=== PATIENT | male | born 1995 | race Caucasian/White ===

== ENCOUNTER 2024-02-27 08:39 | Emergency (ER) | payer BC, SELFPAY ==
[2024-02-27 08:50] VITALS: BP 172/101; PULSE 111; RESP 24; TEMP 36.8; O2SAT 97
--- NOTE | 2024-02-27 08:52 | EKG_ITS ---
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
--- NOTE | 2024-02-27 08:55 | XR_ITS ---
Examination: CT abdomen and pelvis without contrast. Coronal 3-D reconstructions. Sagittal 2-D reconstructions. Date and time of exam:February 27, 2024 0930 hours INDICATIONS: Onset right lower abdominal pain today CTDI: vol (mGy): 9.46 DLP: (mGycm): 621 Technique: Axial images of the abdomen have been obtained, 3 mm slice thickness Intravenous contrast material has not been administered. Low dose protocols were performed. One or more of the following dose reduction techniques were used; automated exposure control, adjustment of the mA and/or KV according to patient size, use of iterative reconstruction technique. Findings: No focal liver or splenic lesions No gallstones No pancreatic or adrenal mass 2 mm lower pole right renal calculus 2 mm lower pole left renal calculus Minimal right hydronephrosis secondary to 2 mm distal right ureterovesical junction calculus Aorta normal size No bowel obstruction No pericecal inflammatory change, normal appendix No diverticulitis Contracted urinary bladder IMPRESSION: Minimal right hydronephrosis secondary to 2 mm distal right ureterovesical junction calculus
[2024-02-27] MEDS: KETOROLAC INJ 30 MG/ML VIAL 15 MG IVP (09:15)
[2024-02-27] MEDS: SODIUM CHLORIDE 0.9% 1000 ML 1,000 ML 999 ML IV (09:17)
--- NOTE | 2024-02-27 09:18 | EDNOTE_ITS ---
ED Abdominal Pain RME/HPI General Chief Complaint: Abdominal Pain Stated complaint: ABD PAIN TODAY Time seen by provider: 02/27/24 08:49 Arrival date/time: 02/27/24 08:39 RME / HPI RME / HPI narrative: 28 year old male with no stated medical history presents to the ED for evaluation of abdominal pain today. States pain is located most to the right flank that radiates around to his right lower quadrant, describes a colicky in sensation, rating as severe. Accompanied by nausea. Denies any history of similar pain. Denies fever, chills, sweating. Denies chest pain, cough, shortness of breath. Denies vomiting, diarrhea, constipation. Denies dysuria, urinary frequency and urgency. Related Data Previous Rx's ?Medication ?Instructions ?Recorded ibuprofen 600 mg tablet 600 mg PO Q6H PRN pain #30 tabs 02/27/24 tamsulosin 0.4 mg capsule 0.4 mg PO QDAY #14 caps 02/27/24 Allergies Allergy/AdvReac Type Severity Reaction Status Date / Time No Known Allergies Allergy Verified 02/27/24 08:41 Review of Systems Review of Systems Narrative Review of Systems: GEN: No fever, no chills, no weight loss EYES: No discharge, no visual changes, no pain HEENT: No ear pain, no congestion, no sore throat PULM: No shortness of breath, no cough, no congestion CV: No chest pain, no dyspnea on exertion, no palpitations GI: +nausea, no vomiting, no diarrhea, + pain, no constipation : No frequency, no urgency, no dysuria MUSC/SKEL: No joint pain, + back pain SKIN: No rash PSYCH: No hallucinations, no depression HEME/LYMPH: No easy bleeding or bruising tendencies NEURO: No weakness, no headache Past Medical History Past Medical History CARDIAC: Negative Congestive Heart Failure RESPIRATORY: Negative Chronic Obstructive Pulmonary Disease (COPD) GENITOURINARY: Negative Renal Disease ENDOCRINE: Negative Diabetes Mellitus Type 1 or Diabetes Mellitus Type 2 Social History SMOKING STATUS: Never smoker ED Exam Narrative Physical exam: GENERAL APPEARANCE: alert and oriented x 4, well-developed, well-nourished, diaphoretic, appears to in pain HEENT: Normocephalic, atraumatic; pupils equal, round, reactive to light; EOMI; mucous membranes pink, moist; oropharynx clear NECK: Supple LUNGS: CTABL; no wheezes, no rales, no rhonchi HEART: Regular rate, regular rhythm; normal S1, S2; no murmurs ABDOMEN: non distended; normal BS; soft, mild right sided tenderness, no guarding, no rebound; no masses, no organomegaly, no hernia BACK: no CVA tenderness EXTREMITIES: atraumatic; no edema NEUROLOGIC: awake; alert and oriented x4; cranial nerves II-XII grossly intact; no focal sensory or motor deficits PSYCHIATRIC: appropriate mood and affect SKIN: warm, dry, normal color; no rashes Course Quality Measures none Orders Category Date Time Status EKG (ED ONLY) *Do not use* NOW Care 02/27/24 08:[address] abdomen pelvis wo con Stat Exams 02/27/24 08:55 Completed EKG (ED Only) Stat Exams 02/27/24 08:52 Draft Alcohol, Blood Medical Stat Lab 02/27/24 09:15 Completed CBC Stat Lab 02/27/24 09:15 Completed Comprehensive Metabolic Panel Stat Lab 02/27/24 09:15 Completed Drug Screen,Urine Stat Lab 02/27/24 09:50 Completed Lipase Stat Lab 02/27/24 09:15 Completed Magnesium Stat Lab 02/27/24 09:15 Completed Troponin I Stat Lab 02/27/24 09:15 Completed UA, C/S IF [Urinalysis, C/S if Indicated] Stat Lab 02/27/24 09:50 Completed HYDROcodone*/APAP 5/325 [[place] [employer] 5/325] Med 02/27/24 12:11 Discontinued 1 tab PO X1 ONE HYDROmorphone INJ [Dilaudid Inj] Med 02/27/24 11:34 Discontinued 1 mg IVP X1 ONE Ketorolac Inj [Toradol Inj] Med 02/27/24 08:51 Discontinued 15 mg IVP X1 ONE Morphine Inj Med 02/27/24 10:25 Discontinued 4 mg IVP X1 ONE Morphine Inj Med 02/27/24 08:51 Discontinued 5 mg IVP X1 ONE Ondansetron Inj [Zofran Inj] Med 02/27/24 08:51 Discontinued 4 mg IV X1 ONE Sodium Chloride 0.9% 1000 ml [Ns] 1,000 ml Med 02/27/24 08:51 Discontinued IV 999 mls/hr Sodium Chloride 0.9% 1000 ml [Ns] 1,000 ml Med 02/27/24 11:47 Discontinued IV 999 mls/hr Tamsulosin HCl [Flomax] Med 02/27/24 10:28 Discontinued 0.4 mg PO X1 ONE Reevaluation(s) Reevaluation #1: still complains of pain after Toradol. Will order Dilaudid. Time: 11:25 Reevaluation #2: Patient reported improvement. We reviewed all the results, analysis, and treatment plans. Patient is amenable to discharge. Strict return precautions were outlined. Patient was discharged in stable condition. Time: 12:25 Vital Signs Vital signs: Vital Signs Temperature 98.3 F 02/27/24 08:50 Pulse Rate 111 H 02/27/24 08:50 Respiratory Rate 24 H 02/27/24 08:50 Blood Pressure 172/101 H 02/27/24 08:50 Pulse Oximetry (%) 97 02/27/24 08:50 Oxygen Delivery Method Room Air 02/27/24 08:50 Pulse ox is 97% on room air which is adequate. Abdominal Pain MDM Patient data External records reviewed:: None Clinical information provided by:: patient Social determinants that could affect healthcare access:: none Patient has the following chronic illnesses:: None How is presenting disease/condition affected by chronic disease/condition?: no chronic disease Evaluation data The following diagnostics were reviewed and interpreted by me:: lab results, radiology exam(s) and EKG tracing(s) (NSR, rate 75, no acute ischemic changes) Lab and/or radiology exams considered but not ordered:: none Interpretation Summary: Abnpelvis CT shows: Minimal right hydronephrosis secondary to 2 mm distal right ureterovesical junction calculus Medications / Prescriptions Medications or Prescriptions considered but not ordered:: none Medication administrations:: Medication Administration History Discontinued Medications Hydrocodone Bitart/Acetaminophen (Hydrocodone/Apap 5/325 Tablet) 1 tab PO X1 ONE Stop: 02/27/24 12:12 Last Admin: 02/27/24 12:42 Dose: 1 tab Documented By: GM Hydromorphone HCl (Hydromorphone Inj 2 Mg/Ml Vial) 1 mg IVP X1 ONE Stop: 02/27/24 11:35 Last Admin: 02/27/24 11:39 Dose: 1 mg Documented By: KM Sodium Chloride (Ns) 1,000 mls @ 999 mls/hr IV .Q1H1M ONE Stop: 02/27/24 09:51 Last Infusion: 02/27/24 12:53 Dose: Infused Documented By: Admin: 02/27/24 09:17 Dose: 999 mls/hr Documented By: CUBA Comments: SCANNER NOT WORKING ON X 2 COMPUTERS CALLED IT Sodium Chloride (Ns) 1,000 mls @ 999 mls/hr IV .Q1H1M ONE Stop: 02/27/24 12:47 Last Admin: 02/27/24 12:41 Dose: Not Given Documented By: DEMARCO Non-Admin Reason: Cancelled by Provider Ketorolac Tromethamine (Ketorolac Inj 30 Mg/Ml Vial) 15 mg IVP X1 ONE Stop: 02/27/24 08:52 Last Admin: 02/27/24 09:15 Dose: 15 mg Documented By: CUBA Comments: SCANNER NOT WORKING ON X 2 COMPUTERS CALLED IT Morphine Sulfate (Morphine Sulf Inj 10 Mg/Ml Vial) 5 mg IVP X1 ONE Stop: 02/27/24 08:52 Last Admin: 02/27/24 09:25 Dose: 5 mg Documented By: CUBA Comments: SCANNER NOT WORKING ON X 2 COMPUTERS CALLED IT Morphine Sulfate (Morphine Sulf Inj 10 Mg/Ml Vial) 4 mg IVP X1 ONE Stop: 02/27/24 10:26 Last Admin: 02/27/24 10:50 Dose: 4 mg Documented By: CUBA Ondansetron HCl (Ondansetron Inj 2 Mg/Ml Inj 2 Ml) 4 mg IV X1 ONE Stop: 02/27/24 08:52 Last Admin: 02/27/24 09:25 Dose: 4 mg Documented By: CUBA Comments: SCANNER NOT WORKING ON X 2 COMPUTERS CALLED IT Tamsulosin HCl (Tamsulosin Hcl 0.4 Mg Capsule) 0.4 mg PO X1 ONE Stop: 02/27/24 10:29 Last Admin: 02/27/24 10:50 Dose: 0.4 mg Documented By: CUBA see above Consultations Consultation(s) initiated? (list below): No Diagnosis Differential diagnosis abdominal pain: abdominal pain, acute appendicitis and calculus of kidney Most likely diagnosis given after review of the tests above:: Kidney stone Admission Indicated Admission indicated?: not indicated Admission Request Was there a request for admission?: No Disposition Plan Disposition Plan: Discharge Discharge Attestation Discharge Attestation: The patient and all family members were given an opportunity to ask questions and understood the discharge instructions. Discharge instructions specifically effects, indications for sooner follow up or return to the emergency department, and the expected course of current diagnosis. Patient condition: Stable Discharge Plan Plan Patient Disposition: HOME (Self Care) Prescriptions/Referrals Prescriptions/Med Rec: New tamsulosin 0.4 mg capsule 0.4 mg PO QDAY Qty: 14 0RF ibuprofen 600 mg tablet 600 mg PO Q6H PRN (Reason: pain) Qty: 30 0RF Referrals: Stas Camarena MD [Primary Care Provider] - In 1 week Problem List Clinical Impression: Right ureteral stone Patient/Caregiver Discharge Instructions Education Materials: ED Kidney Stone w/ Colic Print Language: Romanian Stand Alone Forms: Olinda Award Info., Patient Portal Info Letter
[2024-02-27] MEDS: ONDANSETRON INJ 2 MG/ML INJ 2 ML 4 MG IV (09:25)
[2024-02-27] MEDS: MORPHINE SULF INJ 10 MG/ML VIAL 5 MG IVP (09:25)
--- NOTE | 2024-02-27 09:25 | PC.NURSE ---
patient gone to ct.
[2024-02-27 09:26] VITALS: BMI 26.5
[2024-02-27 09:54] LABS: Basophils % (Auto) 0 % (0-2.5); Eosinophils % (Auto) 0 % (0-10); Hematocrit 45.8 % (41.0-53.0); Immature Granulocytes % (Auto) 0 % (0-0); Immature Granulocytes Auto 0.03 Thou/mm3 (0.00-0.00); Lymphocytes # (Auto) 2.7 Thou/mm3 (1.0-4.8); Lymphocytes % (Auto) 23 % (10-50); Mean Corpuscular HGB Conc 34.9 g/dl (31.0-37.0); Mean Corpuscular Hemoglobin 30.7 pg (25.0-35.0); Mean Corpuscular Volume 88 fL (80-100); Monocytes # (Auto) 0.6 Thou/mm3 (0.0-0.8); Monocytes % (Auto) 5 % (0-12); Neutrophils # (Auto) 8.6 Thou/mm3 (1.8-7.7); Neutrophils % (Auto) 72 % (37-80); Nucleated Red Blood Cell % 0 /100 WBC (0); Platelet Count 334 Thou/mm3 (140-440); RDW Standard Deviation 38.7 fL (35.1-43.9); Red Blood Count 5.21 Miln/mm3 (4.50-5.90)
[2024-02-27 10:07] LABS: Alanine Aminotransferase 46 U/L (10-49); Albumin/Globulin Ratio 1.6 (1.2-2.2); Alcohol, Blood Medical < 10.0 mg/dL (0-10.0); Alkaline Phosphatase 89 U/L (46-116); Anion Gap 13 (7-16); Aspartate Amino Transferase 23 U/L (0-34); BUN/Creatinine Ratio 10 Ratio (12-20); Bilirubin,Total 0.8 mg/dL (0.3-1.2); Blood Urea Nitrogen 13 mg/dL (9-23); Calcium 9.7 mg/dL (8.3-10.6); Calcium (Corrected) 9.7 mg/dL (8.5-10.1); Carbon Dioxide 19.9 mMol/L (20.0-31.0); Chloride 106 mMol/L (98-107); Creatinine (Component) 1.3 mg/dL (0.6-1.3); Estimated Creatinine Clearance 88.1 mL/min (>60); Globulin 3.1 gm/dL (2.3-3.5); Glucose 130 mg/dL (74-106); Lipase 36 U/L (12-53); Magnesium 2.1 mg/dL (1.6-2.6); Osmolality,Calculated 279 (275-295); Potassium 3.5 mMol/L (3.4-5.1); Sodium 139 mMol/L (136-145); Total Protein 8.1 gm/dL (5.7-8.2); Troponin I < 0.002 ng/mL (0.0-0.045); eGFR > 60 See Note
[2024-02-27 10:11] LABS: Collection Type, Urine Clean Catch
[2024-02-27 10:42] LABS: Amphetamine/Methamp Scrn,U Negative (Negative); Barbiturate Screen,Urine Negative (Negative); Benzodiazepines Screen,Urine Negative (Negative); Benzoylecgonine Screen, Ur Negative (Negative); Fentanyl Screen,Urine Negative (Negative); Opiate Screen,Urine Positive (Negative); THC Screen,Urine Negative (Negative)
[2024-02-27 10:49] VITALS: BP 152/88; PULSE 94; RESP 16; O2SAT 95
[2024-02-27] MEDS: TAMSULOSIN HCL 0.4 MG CAPSULE PO (10:50)
[2024-02-27] MEDS: MORPHINE SULF INJ 10 MG/ML VIAL 4 MG IVP (10:50)
[2024-02-27 11:16] LABS: Bacteria,Urine Rare; Bilirubin,Urine Negative (Negative); Blood,Urine 3+ (Negative); Color,Urine Yellow (Lt Yel-Yel); Culture Indicated,Urine Not Indicated; Glucose, Urine Negative (Negative); Ketones,Urine Negative (Negative); Leukocyte Esterase,Urine Negative (Negative); Nitrite,Urine Negative (Negative); Protein,Urine 1+ (Neg - Trace); RBC,Urine 94 /hpf (0-3); Specific Gravity,Urine 1.032 (1.001-1.035); Squamous Epithelial Cell,Urine < 1 /hpf (0-5); Urobilinogen,Urine Negative mg/dL (0.0-1.0); WBC,Urine 5 /hpf (0-5)
--- NOTE | 2024-02-27 11:20 | PC.NURSE ---
Patient thrashing around in [facility], states pain increasing to right lower abd. 12/04 at this time, will notify Dr. Muir.
[2024-02-27 11:22] LABS: Clarity,Urine Hazy (Clear/Hazy)
[2024-02-27 11:27] VITALS: BP 159/78; PULSE 108; RESP 19; TEMP 37.2; O2SAT 95
[2024-02-27] MEDS: HYDROmorphone INJ 2 MG/ML VIAL 1 MG IVP (11:39)
[2024-02-27 12:08] VITALS: BP 122/82; PULSE 91; RESP 20; TEMP 37.5; O2SAT 94
[2024-02-27] MEDS: HYDROcodone/APAP 5/325 TABLET 1 TAB PO (12:42)
== END 2024-02-27 12:50 | disposition home or self-care (01) ==
PROVIDERS: Emergency Provider Emergency Medicine; PCP Internal Medicine
DX: N13.2 Hydronephrosis with renal and ureteral calculous obstruction (principal)
CPT/HCPCS: 36415; 74176; 80053; 80307; 80320; 81001; 83690; 83735; 84484; 85025; 93005; 96361; 96367; 96374; 96375; 99284; J1885; J2270; J2405; J3490; J7030; A9270; G0480